=== PATIENT | male | born 1965 | race Caucasian/White ===

== ENCOUNTER → 2016-08-13 | Outpatient (CLI) | payer OTHER ==
--- NOTE | 2016-08-13 18:16 | EKG REPORT ---
SEVERITY:- NORMAL ECG - SINUS RHYTHM : Confirmed by: Kit Toussaint MD 13-Aug-2016 18:15:23
== END ==
LOC: CCC 09:30
DX: I49.9 Cardiac arrhythmia, unspecified (principal); I10 Essential (primary) hypertension
CPT/HCPCS: 93005; 93010

== ENCOUNTER 2016-12-19 09:02 | Emergency (ER) | payer SELFPAY ==
[2016-12-19 09:07] VITALS: BP 149/85
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
== END 2016-12-19 09:37 | disposition home or self-care (01) ==
LOC: ER 09:02
DX: L03.115 Cellulitis of right lower limb (principal); L01.00 Impetigo, unspecified; I10 Essential (primary) hypertension; J44.9 Chronic obstructive pulmonary disease, unspecified; Z86.14 Personal history of Methicillin resistant Staphylococcus aureus infection
CPT/HCPCS: 99283

== ENCOUNTER 2018-09-14 06:46 | Emergency (ER) | payer SELFPAY ==
--- NOTE | 2018-09-14 08:07 | RADIOLOGY REPORT (SQ) ---
EXAM DESCRIPTION: CHEST 2 VIEWS COMPLETED DATE/TIME: 09/14/2018 7:51 am REASON FOR STUDY: cough COMPARISON: 10/10/2015, 05/02/2015 EXAM PARAMETERS: NUMBER OF VIEWS: two views TECHNIQUE: Digital Frontal and Lateral radiographic views of the chest acquired. RADIATION DOSE: NA LIMITATIONS: none FINDINGS: LUNGS AND PLEURA: No opacities, masses or pneumothorax. No pleural effusion. MEDIASTINUM AND HILAR STRUCTURES: No masses or contour abnormalities. HEART AND VASCULAR STRUCTURES: Heart normal size. No evidence for failure. BONES: No acute findings. HARDWARE: None in the chest. OTHER: No other significant finding. IMPRESSION: NO ACUTE RADIOGRAPHIC FINDING IN THE CHEST. TECHNICAL DOCUMENTATION: JOB ID: [id number] [email or web address] All Rights Reserved Reading location - IP/workstation name: [email or web address]
[2018-09-14 08:19] LABS: ALANINE AMINOTRANSFERASE 50 U/L (21-72); ALKALINE PHOSPHATASE 95 U/L (38-126); ANION GAP 8 (5-19); ASPARTATE AMINO TRANSFERASE 37 U/L (17-59); BILIRUBIN,DIRECT 0.3 mg/dL (0.0-0.4); BILIRUBIN,TOTAL 0.9 mg/dL (0.2-1.3); BLOOD UREA NITROGEN 13 mg/dL (7-20); CALCIUM 9.2 mg/dL (8.4-10.2); CARBON DIOXIDE 27 mmol/L (22-30); CHLORIDE 103 mmol/L (98-107); GLUCOSE 109 mg/dL (75-110); POTASSIUM 4.4 mmol/L (3.6-5.0); SODIUM 137.6 mmol/L (137-145)
--- NOTE | 2018-09-14 10:05 | ER Document Report ---
ED General - General Chief Complaint: Pedal Edema Stated Complaint: FOOT SWOLLEN Time Seen by Provider: 09/14/18 07:03 Primary Care Provider: [facility] [Primary Care Provider] - Follow up as needed TRAVEL OUTSIDE OF THE [place] IN LAST 30 DAYS: No - HPI Patient complains to provider of: Left leg swelling Notes: Patient coming in for evaluation of left leg swelling. Patient states ongoing for greater than a few months however left leg worse today than previous. Patient states he was seen approximately 1 month ago in the local ER not this will had a Doppler performed was negative for DVT. Patient denies any recent travel denies any trauma to the leg. Patient states he does have some changes to his leg and has been treated for a cellulitis. Patient does state he drinks alcohol daily approximately 160 ounces of beer. Patient denies any fevers chills nausea vomiting diarrhea - Related Data Allergies/Adverse Reactions: No Known Allergies Allergy (Verified 12/19/16 09:06) Past Medical History - Social History Smoking Status: Former Smoker Family History: Reviewed & Not Pertinent Patient has suicidal ideation: No Patient has homicidal ideation: No - Past Medical History Cardiac Medical History: Reports: Hx Hypercholesterolemia, Hx Hypertension - not currently on meds Pulmonary Medical History: Reports: Hx COPD Renal/ Medical History: Denies: Hx Peritoneal Dialysis Infectious Medical History: Reports: Hx MRSA - Immunizations Immunizations up to date: Yes Hx Diphtheria, Pertussis, Tetanus Vaccination: Yes Review of Systems - Review of Systems Constitutional: No symptoms reported EENT: No symptoms reported Cardiovascular: No symptoms reported Respiratory: No symptoms reported Gastrointestinal: No symptoms reported Genitourinary: No symptoms reported Male Genitourinary: No symptoms reported Musculoskeletal: Other - Peripheral edema Skin: No symptoms reported Hematologic/Lymphatic: No symptoms reported Neurological/Psychological: No symptoms reported -: Yes All other systems reviewed and negative Physical Exam - Vital signs Vitals: Temp Pulse Resp BP Pulse Ox 98.1 F 78 22 H 163/91 H 97 09/14/18 06:52 09/14/18 06:52 09/14/18 06:52 09/14/18 06:52 09/14/18 06:52 Interpretation: Normal - General General appearance: Appears well, Alert - HEENT Head: Normocephalic, Atraumatic Eyes: Normal Pupils: PERRL - Respiratory Respiratory status: No respiratory distress Chest status: Nontender Breath sounds: Normal Chest palpation: Normal - Cardiovascular Rhythm: Regular Heart sounds: Normal auscultation Murmur: No - Abdominal Inspection: Normal Distension: No distension Bowel sounds: Normal Tenderness: Nontender Organomegaly: No organomegaly - Back Back: Normal, Nontender - Extremities General upper extremity: Normal inspection, Nontender, Normal color, Normal ROM, Normal temperature General lower extremity: Normal inspection, Nontender, Edema - Right trace left 1+ patient with bilateral venous stasis changes with scaling skin the area is not warm not consistent with cellulitis there are chronic venous stasis ulcers as well bilateral legs pulses are felt distally dorsalis pedis, Normal ROM, Normal temperature, Normal weight bearing. No: Larry's sign - Neurological Neuro grossly intact: Yes Cognition: Normal Orientation: AAOx4 [place] Coma Scale Eye Opening: Spontaneous Deric Coma Scale Verbal: Oriented Deric Coma Scale Motor: Obeys Commands [place] Coma Scale Total: 15 Speech: Normal Motor strength normal: LUE, RUE, LLE, RLE Sensory: Normal - Psychological Associated symptoms: Normal affect, Normal mood - Skin Skin Temperature: Warm Skin Moisture: Dry Skin Color: Normal Course - Re-evaluation Re-evalutation: 09/14/18 14:03 Laboratory studies x-rays venous Doppler all negative for acute pathology. Patient was recommended to use his compression stockings that he has at home. Patient will be discharged home follow-up primary care physician. - Vital Signs Vital signs: Temp Pulse Resp BP Pulse Ox 98.4 F 74 17 179/84 H 97 09/14/18 10:55 09/14/18 10:55 09/14/18 10:55 09/14/18 10:55 09/14/18 10:55 - Laboratory Result Diagrams: 09/14/18 07:41 Discharge - Discharge Clinical Impression: Peripheral edema, Cough Venous stasis dermatitis Qualifiers: Laterality: bilateral Qualified Code(s): I87.2 - Venous insufficiency (chronic) (peripheral) Disposition: HOME, SELF-CARE Instructions: Edema, Peripheral ([facility]) Additional Instructions: Your evaluation today does not show any signs of pneumonia on your chest x-ray or signs of a blood clot. Your basic laboratory studies are normal. I would highly recommend he follow-up with your primary care physician please decrease your alcohol consumption return to ER symptoms worsen. Recommend wearing your compression stockings and elevating your feet at night Referrals: [facility] [Primary Care Provider] - Follow up as needed
[2018-09-14 10:56] VITALS: BP 179/84
--- NOTE | 2018-09-14 11:48 | XCELERA REPORT ---
[address] [place] [facility] [address] Lower Extremity Venous Evaluation Procedure: Color flow and duplex imaging of the veins of the left lower extremity as well as the right Common Femoral vein. Right Sided Venous Evaluation The right common femoral vein is fully compressible. Spontaneous and phasic flow is present in the right common femoral vein. Left Sided Venous Evaluation Normal vessel filling wall to wall, compression and augmentation as well as Colour flow down to the infrageniculate veins. Interpretation Summary No duplex evidence of DVT or obstruction in the left lower extremity nor in the right Common Femoral vein. Name: MALISSA GORMAN Age: 52 yrs Gender: Male : 1965 Patient Status: Emergency Patient Location: ER Study Date: 09/14/2018 09:24 AM Reason For Study: left leg Ordering Physician: BRYCE OCAMPO Performed By: Kaylyn Saxena : BRYCE OCAMPO > Silvio Kennedy
== END 2018-09-14 10:56 | disposition home or self-care (01) ==
LOC: ER 06:46
DX: I87.2 Venous insufficiency (chronic) (peripheral) (principal); R60.0 Localized edema; R05 Cough; I10 Essential (primary) hypertension; J44.9 Chronic obstructive pulmonary disease, unspecified; Z87.891 Personal history of nicotine dependence
CPT/HCPCS: 36415; 71046; 80053; 93971; 99284

== ENCOUNTER → 2018-09-30 | Outpatient (CLI) | payer OTHER | LOC: CCC 08:04 | DX: Z00.00 Encounter for general adult medical examination without abnormal findings (principal); I10 Essential (primary) hypertension; E78.5 Hyperlipidemia, unspecified ==

== ENCOUNTER 2019-08-10 10:29 | Emergency (ER) | payer OTHER ==
[2019-08-10] MEDS ORDERED: ONDANSETRON 4 MG TAB.RAPDIS PO ONE (10:41)
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
[2019-08-10 11:20] LABS: ABSOLUTE EOSINOPHILS # (AUTO) 0.1 10^3/uL (0.0-0.6); ABSOLUTE LYMPHOCYTES (AUTO) 1.2 10^3/uL (0.5-4.7); ABSOLUTE MONOCYTES (AUTO) 1.4 10^3/uL (0.1-1.4); ABSOLUTE NEUT (AUTO) 9.6 10^3/uL (1.7-8.2); BASOPHILS % (AUTO) 0.2 % (0-2); EOSINOPHILS % (AUTO) 0.5 % (0-6); HEMATOCRIT 44.1 % (37.9-51.0); HEMOGLOBIN 15.7 g/dL (13.5-17.0); LYMPHOCYTES % (AUTO) 9.8 % (13-45); MEAN CORPUSCULAR HEMOGLOBIN 32.2 pg (27.0-33.4); MEAN CORPUSCULAR HGB CONC 35.5 g/dL (32.0-36.0); MEAN CORPUSCULAR VOLUME 91 fl (80-97); MONOCYTES % (AUTO) 11.1 % (3-13); PLATELET COUNT 189 10^3/uL (150-450); RED BLOOD COUNT 4.87 10^6/uL (4.35-5.55); RED CELL DISTRIBUTION WIDTH 13.2 % (11.5-14.0); SEGMENTED NEUTROPHILS % (AUTO) 78.4 % (42-78); TOTAL CELLS COUNTED % (AUTO) 100 %; WHITE BLOOD COUNT 12.2 10^3/uL (4.0-10.5)
[2019-08-10 11:21] LABS: APPEARANCE,URINE CLEAR; BILIRUBIN,URINE NEGATIVE (NEGATIVE); COLOR,URINE YELLOW; GLUCOSE, URINE NEGATIVE (NEGATIVE); KETONES,URINE NEGATIVE (NEGATIVE); PROTEIN,URINE NEGATIVE (NEGATIVE); URINE SPECIFIC GRAVITY 1.025
[2019-08-10] MEDS ORDERED: ONDANSETRON HCL INJ/PF 4 MG/2 ML SDV IV ONE (11:40)
[2019-08-10] MEDS ORDERED: NORMAL SALINE 1000 ML 1,000 ML IV ONE (11:40)
[2019-08-10 11:45] LABS: ALBUMIN 4.4 g/dL (3.5-5.0); ALKALINE PHOSPHATASE 87 U/L (38-126); ANION GAP 11 (5-19); ASPARTATE AMINO TRANSFERASE 20 U/L (17-59); BILIRUBIN,DIRECT 0.2 mg/dL (0.0-0.4); BILIRUBIN,TOTAL 0.9 mg/dL (0.2-1.3); BLOOD UREA NITROGEN 19 mg/dL (7-20); CALCIUM 8.7 mg/dL (8.4-10.2); CARBON DIOXIDE 32 mmol/L (22-30); CHLORIDE 97 mmol/L (98-107); GLUCOSE 107 mg/dL (75-110); POTASSIUM 3.7 mmol/L (3.6-5.0); TOTAL PROTEIN 7.7 g/dL (6.3-8.2)
--- NOTE | 2019-08-10 12:58 | ER Document Report ---
Entered by JUANA HARRELL SCRIBE 08/10/19 1134 Acting as scribe for:RISSA PEDERSON MD ED GI/ - General Chief Complaint: Abdominal Cramping Stated Complaint: VOMITING,ABDOMINAL PAIN Time Seen by Provider: 08/10/19 10:37 Primary Care Provider: [facility] [NO LOCAL MD] - Follow up as needed Mode of Arrival: Ambulatory Information source: Patient, [facility] Records Notes: This 53-year-old male patient presents to the emergency department today complaining of nausea vomiting diarrhea. He reports yesterday morning he got up and prepared breakfast with eggs, and about that time was having some diarrhea. He reports about 1230 that afternoon he had nausea and vomiting and threw up the breakfast he had eaten. He did not eat again yesterday until yesterday evening when he ate some crackers. He drank very little fluid. He reports this morning when he got up he vomited again. He has been having cramping abdominal pains today. There is no fever, there is no cough. There is been no diarrhea since yesterday morning. He saw on the news this morning that abdominal pain and diarrhea could be a sign of the coronavirus infection, so he came to the emergency room to be evaluated. TRAVEL OUTSIDE OF THE [place] IN LAST 30 DAYS: No - Related Data Allergies/Adverse Reactions: No Known Allergies Allergy (Verified 12/19/16 09:06) Past Medical History - General Information source: Patient, [facility] Records - Social History Smoking Status: Former Smoker Chew tobacco use (# tins/day): No Frequency of alcohol use: None Drug Abuse: None Family History: Reviewed & Not Pertinent Patient has suicidal ideation: No Patient has homicidal ideation: No - Past Medical History Cardiac Medical History: Reports: Hx Hypercholesterolemia, Hx Hypertension - not currently on meds Pulmonary Medical History: Reports: Hx COPD Infectious Medical History: Reports: Hx MRSA - Immunizations Immunizations up to date: Yes Hx Diphtheria, Pertussis, Tetanus Vaccination: Yes Review of Systems - Review of Systems Constitutional: No symptoms reported EENT: No symptoms reported Cardiovascular: No symptoms reported Respiratory: denies: Cough Gastrointestinal: See HPI, Diarrhea, Nausea, Vomiting. denies: Abdominal pain Genitourinary: No symptoms reported Male Genitourinary: No symptoms reported Musculoskeletal: No symptoms reported Skin: No symptoms reported Hematologic/Lymphatic: No symptoms reported Neurological/Psychological: No symptoms reported -: Yes All other systems reviewed and negative Physical Exam - Vital signs Vitals: Temp Pulse Resp BP Pulse Ox 97.8 F 82 20 148/74 H 96 08/10/19 10:34 08/10/19 10:34 08/10/19 10:34 08/10/19 10:34 08/10/19 10:34 - Notes Notes: Physical Exam: General: Alert, appears well, obese. HEENT: Normocephalic. Atraumatic. PERRL. Extraocular movements intact. Oropharynx clear. Neck: Supple. Non-tender. Respiratory: No respiratory distress. Coarse breath sounds with rhonchi bilaterally, no wheezing. Cardiovascular: Regular rate and rhythm. Abdominal: Morbidly obese. Right lateral abdominal and left lower quadrant tenderness with palpation. No distension. Normal Bowel Sounds. Back: No gross abnormalities. Extremities: Moves all four extremities. Upper extremities: Normal inspection. Normal ROM. Lower extremities: Normal inspection. No edema. Normal ROM. Neurological: Normal cognition. AAOx4. Normal speech. Psychological: Normal affect. Normal Mood. Skin: Warm. Dry. Normal color. Course - Re-evaluation Re-evalutation: 08/10/19 15:17 He has had 1 L of IV fluids, and Zofran for nausea. At this time he states he feels fine, there is no nauseousness, there is no abdominal discomfort, he does feel comfortable going home. He states she lives alone and keeps himself all the time, so I advised him to continue that over the weekend, and if he develops any new or worsening symptoms then to call the [facility] coronavirus line for further instructions. - Vital Signs Vital signs: Temp Pulse Resp BP Pulse Ox 97.8 F 82 20 148/74 H 96 08/10/19 10:34 08/10/19 10:34 08/10/19 10:34 08/10/19 10:34 08/10/19 10:34 - Laboratory Result Diagrams: 08/10/19 10:50 08/10/19 10:50 Laboratory results interpreted by me: 08/10/19 08/10/19 08/10/19 10:50 10:50 10:50 WBC 12.2 H Lymph % (Auto) 9.8 L Absolute Neuts (auto) 9.6 H Seg Neutrophils % 78.4 H Chloride 97 L Carbon Dioxide 32 H Urine Urobilinogen 4.0 H Discharge - Discharge Clinical Impression: Nausea, vomiting and diarrhea, Abdominal cramps Condition: Stable Disposition: HOME, SELF-CARE Additional Instructions: Gastroenteritis: You most likely have gastroenteritis. This is an irritation of the stomach and intestinal tract. It's usually caused by a virus, but can also be caused by bacteria, toxins that cause food poisoning, or excessive alcohol intake. Symptoms may include fever, painful abdominal cramps, nausea, vomiting, and diarrhea. Start with small amounts (two to six ounces) of clear liquids (soft drinks, herb teas, broth, etc). Try to take fluids frequently even if you are vomiting, to prevent dehydration. When liquids are being consumed successfully, advance to small amounts of bland food (mashed potato, toast) for 6 - 12 hours. Gastroenteritis rarely requires medication. It goes away by itself. Use good handwashing so you don't spread germs. Wash underwear in very hot water. If symptoms are severe, talk to the doctor. Call your physician if blood appears in your vomitus or stool, if vomiting lasts longer than 24 hours, if the abdominal pain worsens or becomes localized to one area, or if you develop high fever. Drink plenty of cool clear liquids throughout the day in the evening today. Take the Zofran as dispensed for nausea if needed. Get plenty of rest. Follow-up with a local medical doctor if not improving. RETURN TO THE EMERGENCY ROOM IF ANY NEW OR WORSENING SYMPTOMS. Referrals: [facility] [NO LOCAL MD] - Follow up as needed I personally performed the services described in the documentation, reviewed and edited the documentation which was dictated to the scribe in my presence, and it accurately records my words and actions.
[2019-08-10] MEDS ORDERED: ONDANSETRON ODT 4 MG TAB (6 TAB/ER DISP) PO PRN (15:20)
[2019-08-10 15:58] VITALS: BP 121/58
== END 2019-08-10 15:57 | disposition home or self-care (01) ==
LOC: ER 10:29
DX: R11.2 Nausea with vomiting, unspecified (principal); R19.7 Diarrhea, unspecified; R10.9 Unspecified abdominal pain; E78.00 Pure hypercholesterolemia, unspecified; J44.9 Chronic obstructive pulmonary disease, unspecified; Z86.14 Personal history of Methicillin resistant Staphylococcus aureus infection
CPT/HCPCS: 99284; 96361; 96374; 36415; 83690; 85025; 80053; 81001; S0119; J2405; J7030

== ENCOUNTER 2020-05-08 07:37 | Emergency (ER) | payer SELFPAY ==
--- NOTE | 2020-05-08 11:04 | ER Document Report ---
ED General - General Chief Complaint: Sinus Congestion Stated Complaint: POSSIBLE SINUS CONGESTION Time Seen by Provider: 05/08/20 10:03 TRAVEL OUTSIDE OF THE [place] IN LAST 30 DAYS: No - HPI Notes: Patient is a 54-year-old male who presents emergency department for evaluation of sinus congestion, facial pain. He said symptoms for about 2 weeks. He was seen by his primary care provider, started on amoxicillin, states he really has not had any relief. He continues to have significant pressure. He has had some chills but no fay fevers to his knowledge. No nausea or vomiting. No anosmia. He always has some mild shortness of breath at baseline from his COPD, states that really does not seem any worse than normal. He currently puts his pain out of 6 out of 10, its in the right side of the face. He came in via EMS, tested positive for Covid per their rapid testing. - Related Data Allergies/Adverse Reactions: No Known Allergies Allergy (Verified 05/08/20 08:40) Home Medications: List reviewed with patient Past Medical History - General Information source: Patient - Social History Smoking Status: Former Smoker Frequency of alcohol use: None Family History: Reviewed & Not Pertinent - Past Medical History Cardiac Medical History: Reports: Hx Hypercholesterolemia, Hx Hypertension - not currently on meds Pulmonary Medical History: Reports: Hx COPD Endocrine Medical History: Reports: Hx Hypothyroidism Renal/ Medical History: Denies: Hx Peritoneal Dialysis Infectious Medical History: Reports: Hx MRSA - Immunizations Immunizations up to date: Yes Hx Diphtheria, Pertussis, Tetanus Vaccination: Yes Review of Systems - Review of Systems Constitutional: See HPI EENT: See HPI Cardiovascular: No symptoms reported Respiratory: See HPI Gastrointestinal: No symptoms reported Genitourinary: No symptoms reported Musculoskeletal: No symptoms reported Skin: No symptoms reported Neurological/Psychological: No symptoms reported Physical Exam - Vital signs Vitals: Temp Pulse Resp BP Pulse Ox 98.8 F 93 20 159/64 H 96 05/08/20 07:46 05/08/20 07:46 05/08/20 07:46 05/08/20 07:46 05/08/20 07:46 - Notes Notes: Vital signs reviewed, please refer to chart. Head is normocephalic, atraumatic. Pupils equal round, reactive to light. Patient has significant tenderness over the right frontal and maxillary sinuses, over the ethmoid sinus. Oral mucosa is moist, pharynx is mildly erythematous without exudates. Neck is supple without meningismus. Heart is regular rate and rhythm. Lungs are clear to auscultation bilaterally. Abdomen is soft, nontender, normoactive bowel sounds throughout. Extremities without cyanosis, clubbing. Posterior calves are nontender. Peripheral pulses are equal. Skin is warm and dry. Patient is awake, alert, neurological exam is nonfocal. Course - Re-evaluation Re-evalutation: 05/08/20 11:01 Patient presents emergency department for evaluation. He had a positive Covid test in route. Although his symptoms are not highly congruent, given his positive test I would tell him to quarantine. He voiced understanding. He was told about [id number] treatments including vitamin C, zinc, melatonin. Other than that, he has had symptoms of acute sinusitis for over 2 weeks. He has not had any improvement. He has had some chills. I will get head and start him on some antibiotics and a short course of steroids. Otherwise he is told to take [id number] medications as needed for further symptom relief. He is to return to the ED with worsening or new concerning symptoms of any sort. - Vital Signs Vital signs: Temp Pulse Resp BP Pulse Ox 97.7 F 83 18 139/91 H 96 05/08/20 11:59 05/08/20 11:59 05/08/20 11:59 05/08/20 11:59 05/08/20 11:59 - Laboratory Results Critical Laboratory Results Reviewed: No Critical Results - Radiology Results Critical Radiology Results Reviewed: No Critical Results Discharge - Discharge Clinical Impression: COVID-19 Acute sinusitis Qualifiers: Sinusitis location: unspecified location Recurrence: recurrent Qualified Code(s): J01.91 - Acute recurrent sinusitis, unspecified Condition: Stable Disposition: HOME, SELF-CARE Instructions: COVID-19 Guidance for Persons Under Investigation, Sinusitis ([facility]) Additional Instructions: As discussed, you tested positive for COVID-19 per EMS. You should quarantine at home. You can start supplementation [id number] with vitamin C, zinc, and melatonin at bedtime. Please try and quarantine, particularly away from your significant other who is oxygen dependent. If she is concerned about Covid and is not symptomatic, she can contact the respiratory clinic through our hospital to schedule an appointment to be tested. Otherwise, take medications as prescribed. If you develop shortness of breath, or new or concerning symptoms of any sort, please return immediately to the emergency department for evaluation. Prescriptions: Prednisone [Deltasone 20 mg Tablet] 60 mg PO DAILY #9 tablet Azithromycin [Zithromax 250 mg Tablet] 250 mg PO ASDIR PRN #6 tablet PRN Reason:
[2020-05-08 12:00] VITALS: BP 139/91
== END 2020-05-08 12:00 | disposition home or self-care (01) ==
LOC: ER 07:37
DX: U07.1 COVID-19 (principal); J01.91 Acute recurrent sinusitis, unspecified; J44.9 Chronic obstructive pulmonary disease, unspecified; I10 Essential (primary) hypertension; Z87.891 Personal history of nicotine dependence
CPT/HCPCS: 99283